=== PATIENT | male | born 1990 | race Caucasian/White ===

== ENCOUNTER → 2018-04-29 | Outpatient (CLI) | payer OTHER ==
--- NOTE | 2018-04-29 15:55 | XR ---
Lumbar spine HISTORY: Low back pain 3 views of the lumbar spine Lumbar vertebral bodies show preserved height, alignment, and bone mineralization. Disc spaces are ma intained. No evident paraspinal mass. IMPRESSION: Normal lumbar spine. Consider lumbar MRI for increased sensitivity.
== END | disposition home or self-care (01) ==
LOC: RADXRYALE 15:24
PROVIDERS: ATTEND Family Medicine
DX: M54.5 Low back pain (principal)
CPT/HCPCS: 72100

== ENCOUNTER 2021-03-18 06:32 | Day surgery (SDC) | payer OTHER ==
[2021-03-16 10:37] VITALS: BMI 27.3
--- NOTE | 2021-03-17 09:44 | HP ---
HISTORY AND PHYSICAL CHIEF COMPLAINT: Right knee pain. 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 He twisted his knee. He has had pain, swelling, and giving way ever since. He has tried medications with only partial relief. He has also had an injection. PAST MEDICAL HISTORY: Negative. PAST SURGICAL HISTORY: Negative. MEDICATIONS: Ibuprofen. ALLERGIES: HE NOTES ALLERGIES TO PENICILLIN. FAMILY HISTORY: Noncontributory. SOCIAL HISTORY: Significant for 1/2 pack per day tobacco use. REVIEW OF SYSTEMS: Sixteen-point review of systems otherwise reviewed and is noncontributory. PHYSICAL EXAMINATION: On examination, patient is approximately 5 foot 7, 175 pounds of mesomorphic habitus. HEENT exam is nonfocal. NECK is supple. He has painless passive motion of the right hip. Straight leg raise is negative active motion right knee -6 to 125 degrees of flexion. He has trace effusion. He is tender over the medial joint line. Collaterals are stable, Rebecca is negative, Caitlyn's elicits medial pain. His distal neurovascular exam appears intact in the right lower extremity. MRI report right knee 08/24/2020 shows a posterior medial meniscal tear along with edema about the medial patellofemoral ligament and MCL. IMPRESSION: Right knee symptomatic medial meniscal tear. RECOMMENDATIONS: I talked to the patient at length regarding his condition and treatment options. At this point he is having persistent pain and mechanical symptoms after this acute injury despite attempted conservative measures. After thorough discussion, he opts to proceed with surgery. We will plan to proceed with arthroscopic evaluation with possible partial medial meniscectomy. We will likely perform as an outpatient procedure. Risks and benefits were discussed at length in layman's terms. MMODL / IJN: [id number] /
[~2021-03-18 06:32] MED LIST: DEXAMETHASONE SOD PHOSPHATE 4 MG/ML 1 ML VIAL IV ONE; LACTATED RINGERS 1,000 ML IV SCH; ONDANSETRON 4 MG/2 ML VIAL IVP ONE
[2021-03-18] MEDS ORDERED: LIDOCAINE 1% (10MG/ML) FOR IV START INTRADERMA ONE (07:07)
[2021-03-18] MEDS ORDERED: fentaNYL (PF) 50 MCG/ML 2 ML AMP ONE (07:54)
[2021-03-18] MEDS ORDERED: KETAMINE 10 MG/ML 20 ML VIAL ONE (07:54)
[2021-03-18] MEDS ORDERED: LIDOCAINE 1% INJ 10MG/ML (20 ML MDV) ONE (07:54)
[2021-03-18] MEDS ORDERED: SUCCINYLCHOLINE CHLORIDE 100 MG/5 ML SYR IV ONE (07:54)
[2021-03-18] MEDS ORDERED: MIDAZOLAM 2 MG/2 ML VIAL ONE (07:54)
[2021-03-18] MEDS ORDERED: EPINEPHrine (PF) 1 ML in SODIUM CHLORIDE 0.9% IRRIGATIO 3,000 ML IRRIGATION ONE ×4 (08:05)
--- NOTE | 2021-03-18 08:38 | P.OP ---
Date of Procedure: 03/18/21 Preoperative Diagnosis: Right knee internal derangement Postoperative Diagnosis: Right knee posterior medial meniscal tear Procedure(s) Performed: Right knee arthroscopic partial medial meniscectomy [facility] Surgeon: Justin Burnette Estimated Blood Loss (ml): 10 Pathology: none sent Condition: stable Disposition: PACU Indications for Procedure: The patient's a 30-year-old male presents with progressive right knee pain and mechanical symptoms after previous twisting injury despite attempted conservative measures. A discussion of the risks and benefits of operative intervention versus continued conservative measures was made with patient. He opted to proceed with surgery. Operative risks to include infection, neurovascular injury, development of blood clots, possible incomplete resolution of symptoms, possible worsening symptoms and need for subsequent procedures was discussed. Informed consent was obtained. Operative Findings: As below Description of Procedure: The patient was brought to the operating room, and after induction of general anesthesia examined the right knee. Collaterals were stable, Rebecca was negative, and posterior drawer was negative. The right lower extremity was prepped and draped in a normal fashion. A superior lateral portal was made through a 3 mm skin incision superior and lateral to the patella. This was used for outflow. A lateral portal was made through a 5 mm vertical skin incision lateral to the patella tendon above the joint line. Diagnostic arthroscopy was performed. On inspection of the medial compartment, a longitudinal tear was noted involving the posterior horn of the medial meniscus in the white-white junction. This was not amenable to repair. This was debrided back to stable base with straight baskets and a motorized shaver. The remainder the medial meniscus was stable and intact. On inspection of the notch, the anterior cruciate ligament appeared to be intact. On inspection of the lateral compartment, no significant meniscal or cartilage pathology was noted. On inspection of the patellofemoral articulation, no significant cartilage pathology was noted. The gutters were clear debris. The knee was then thoroughly irrigated. The portals were closed with Steri-Strips. A sterile dressing was applied in addition to a compression stocking. The patient was awoken from general anesthesia and transferred to recovery room in good condition. Blood loss was estimated at 10 mL. No complications were incurred.
[2021-03-18] MEDS ORDERED: KETOROLAC 15 MG/ML 1 ML VIAL ONE (08:54)
[2021-03-18] MEDS: HYDROmorphone 0.5 MG/0.5 ML SYRINGE IVP PRN ×2 (08:59→09:15)
[2021-03-18] MEDS ORDERED: KETOROLAC 15 MG/ML 1 ML VIAL IVP ONE (09:00)
[2021-03-18 09:04] VITALS: TEMP 97
[2021-03-18 09:07] VITALS: RESP 16
[2021-03-18 09:56] VITALS: BP 129/83; PULSE 76
== END 2021-03-18 10:21 | disposition home or self-care (01) ==
LOC: OR 06:32
PROVIDERS: ATTEND Orthopaedic Surgery
DX: S83.241A Other tear of medial meniscus, current injury, right knee, initial encounter (principal); X50.1XXA Overexertion from prolonged static or awkward postures, initial encounter; G47.33 Obstructive sleep apnea (adult) (pediatric); F17.210 Nicotine dependence, cigarettes, uncomplicated; Z98.890 Other specified postprocedural states; Z79.1 Long term (current) use of non-steroidal anti-inflammatories (NSAID); Z88.0 Allergy status to penicillin
CPT/HCPCS: 29881; J2250; J1100; J0690; J2405; J0171; J2001; J3010; J1885; J0330; J1170

== ENCOUNTER → 2022-06-20 | Outpatient (CLI) | payer OTHER | END | disposition home or self-care (01) | LOC: LABWHC1 15:49 | PROVIDERS: ATTEND Family Medicine | DX: B89 Unspecified parasitic disease (principal) | CPT/HCPCS: 87502 ==